=== PATIENT | female | born 1975 | race Caucasian/White ===

== ENCOUNTER 2020-08-26 13:30 | Outpatient (CLI) | payer OTHER | END 2020-08-26 13:41 | disposition home or self-care (01) | LOC: RAD 13:30 | PROVIDERS: ATTEND Physical Medicine & Rehabilitation | DX: M25.852 Other specified joint disorders, left hip (principal); M17.2 Bilateral post-traumatic osteoarthritis of knee; M16.12 Unilateral primary osteoarthritis, left hip; M54.5 Low back pain ==